=== PATIENT | female | born 1960 | race Caucasian/White ===

== ENCOUNTER 2017-02-25 12:07 | Emergency (ER) | payer MEDICARE, OTHER ==
[~2017-02-25 12:07] MED LIST: EFFEXOR XR 150150 MG PO; FOLIC ACID1 MG PO; NORCO 10-325 T1 EACH PO; TRAZODONE HCL100 MG PO; VITAMIN B-1 5050 MG PO; VITAMIN B-1100 MG PO
== END 2017-02-25 14:10 | disposition home or self-care (01) ==
LOC: ER1 12:07
DX: S93.402A Sprain of unspecified ligament of left ankle, initial encounter (principal); X50.1XXA Overexertion from prolonged static or awkward postures, initial encounter; Y93.89 Activity, other specified; Y92.009 Unspecified place in unspecified non-institutional (private) residence as the place of occurrence of the external cause; Y99.8 Other external cause status
CPT/HCPCS: 99283